=== PATIENT | female | born 1985 | race African-American/Black ===

== ENCOUNTER 2018-12-30 16:10 | Emergency (ER) | payer OTHER ==
[2018-12-30] MEDS ORDERED: HYDROCODONE/APAP (7.5/325) TAB PO (18:00)
== END 2018-12-30 18:19 | disposition home or self-care (01) ==
LOC: E/R 16:10 → FTE 18:19
DX: Z76.0 Encounter for issue of repeat prescription (principal)
CPT/HCPCS: 99281; Z7502